=== PATIENT | female | born 1990 | race Caucasian/White ===

== ENCOUNTER 2020-05-24 23:14 | Inpatient (IN) | payer OTHER ==
[~2020-05-24] VITALS: Ht 162.6 cm; Wt 55.0 kg
[2020-05-24 23:29] LABS: BASOPHILS % (AUTO) 0.8 % (0.0-2.0); EOSINOPHILS % (AUTO) 0.5 % (1.0-6.0); HEMATOCRIT 37.6 % (36-46); HEMOGLOBIN 12.8 g/dL (12.0-16.0); LYMPHOCYTES # (AUTO) 2.9 K/uL (1.0-4.8); LYMPHOCYTES % (AUTO) 51.6 % (22.0-44.0); MEAN CORPUSCULAR HEMOGLOBIN 28.1 pg (26.0-34.0); MEAN CORPUSCULAR HGB CONC 33.9 G/dL (31.0-37.0); MEAN CORPUSCULAR VOLUME 83 fL (80-100); MONOCYTES # (AUTO) 0.4 K/uL (0.1-1.0); MONOCYTES % (AUTO) 6.2 % (2.0-9.0); NEUTROPHILS # (AUTO) 2.3 K/uL (1.8-7.7); NEUTROPHILS % (AUTO) 40.9 % (40.0-70.0); PLATELET COUNT (AUTO) 283 K/uL (150-450); RED BLOOD CELL COUNT(AUTO) 4.53 MIL/uL (4.00-5.20)
[2020-05-24] MEDS ORDERED: INSU100I24 SQ (23:38)
[2020-05-24] MEDS ORDERED: ESCI-8 PO (23:38)
[2020-05-24] MEDS ORDERED: INSU100I3 SQ (23:38)
[2020-05-24] MEDS ORDERED: SPIR50 PO (23:38)
[2020-05-24 23:55] LABS: GLUCOSE,POINT OF CARE 206 MG/DL (70-110)
[2020-05-24 23:57] LABS: ALANINE AMINOTRANSFERASE 17 U/L (12-78); ALBUMIN 3.8 g/dL (3.4-5.0); ASPARTATE AMINOTRANSFERASE 14 U/L (15-37); CHLORIDE 104 mmol/L (98-107); POTASSIUM 3.3 mmol/L (3.5-5.1); SODIUM SERUM 143 mmol/L (136-145)
[2020-05-25 00:14] LABS: ALKALINE PHOSPHATASE 56 U/L (46-116); ANION GAP 15 mmol/L (8-16); BILIRUBIN,TOTAL 0.4 mg/dL (0.1-1.0); CALCIUM, TOTAL 8.8 mg/dL (8.8-10.5); CARBON DIOXIDE 24 mmol/L (22-29); CREATININE 0.57 mg/dL (0.60-1.30); GLOMERULAR FILTR. RATE CALC > 60 mL/min (>60); GLUCOSE,RANDOM 239 mg/dL (70-110); HCG,QUANTITATIVE < 1 mIU/mL (0-6); TOTAL PROTEIN, SERUM 6.6 g/dL (6.4-8.2); UREA NITROGEN, BLOOD 5 mg/dL (7-18)
[2020-05-25] MEDS ORDERED: LORazepam 2 MG TABLET PO PRN (00:45)
[2020-05-25] MEDS ORDERED: ZOLPIDEM TARTRATE 10 MG TABLET PO PRN (00:45)
[2020-05-25] MEDS ORDERED: QUEtiapine FUMARATE 100 MG TABLET PO PRN (00:45)
[2020-05-25 01:07] LABS: COVID AG,FIA SOURCE NASOPHARYNGEAL
[2020-05-25] MEDS ORDERED: POTASSIUM CHLORIDE 10% 40 MEQ/30 ML LIQUID UDCUP PO ONE (01:15)
[2020-05-25] MEDS ORDERED: INSULIN REGULAR, HUMAN 100 UNITS/ML SQ ONE (01:15)
[2020-05-25] MEDS ORDERED: BACITRACIN 0.9 GM PACKET OINTMENT TP ONE (01:15)
[2020-05-25] MEDS ORDERED: PERTUSS(ACELL),DIPH,TET VAC/PF 0.5 ML VIAL IM ONE (01:15)
[2020-05-25 03:15] VITALS: BP 113/80
[2020-05-25] MEDS ORDERED: INFLUENZA VIRUS VACCINE QVS 2020-21 (6MO+)/PF 60 MCG/0.5 ML SYRINGE IM ONE (05:00)
[2020-05-25] MEDS ORDERED: PNEUMOCOCCAL VACCINE POLYVALENT 0.5 ML VIAL [PPSV23] IM ONE (05:00)
[2020-05-25] MEDS ORDERED: DEXTROSE 50%-WATER 25 GM/50 ML SYRINGE IVP PRN (06:45)
[2020-05-25] MEDS ORDERED: MAGNESIUM HYDROXIDE SUSPENSION 30 ML UDCUP PO PRN (09:00)
[2020-05-25] MEDS ORDERED: CloNIDine HCL 0.1 MG TABLET PO PRN (09:00)
[2020-05-25] MEDS ORDERED: LOPERAMIDE HCL 2 MG CAPSULE PO PRN (09:00)
[2020-05-25] MEDS ORDERED: MAG HYDROX/AL HYDROX/SIMETH ES 30 ML SUSPENSION UDCUP PO PRN (09:00)
[2020-05-25] MEDS ORDERED: NICOTINE 14 MG/24 HOUR PATCH TD PRN (09:00)
[2020-05-25] MEDS ORDERED: DOCUSATE SODIUM 100 MG CAPSULE PO PRN (09:00)
[2020-05-25] MEDS ORDERED: GuaiFENesin/D-METHORPHAN [SUGAR-FREE] 200-20MG/10 ML SYRUP UDCUP PO PRN (09:00)
[2020-05-25] MEDS ORDERED: ALBUTEROL SULFATE HFA 90 MCG/PUFF 8 GM INHALER IH PRN (09:00)
[2020-05-25] MEDS ORDERED: PETROLATUM,WHITE 28 GM JELLY TP PRN (09:00)
[2020-05-25] MEDS ORDERED: ONDANSETRON HCL 4 MG TABLET PO PRN (09:00)
[2020-05-25] MEDS ORDERED: ACETAMINOPHEN 325 MG TABLET PO PRN (09:00)
[2020-05-25] MEDS ORDERED: IBUPROFEN 400 MG TABLET PO PRN (09:00)
[2020-05-25 09:32] VITALS: BP 117/77
[2020-05-25] MEDS ORDERED: POTASSIUM CHLORIDE 20 MEQ ER TABLET PO ONE (10:00)
[2020-05-25] MEDS: SPIRONOLACTONE 50 MG TABLET PO SCH (10:43)
[2020-05-25] MEDS: INSULIN LISPRO 100 UNITS/ML SQ PRN ×3 (11:59→21:18)
[2020-05-25 12:25] LABS: GLUCOMETER DEV NAME(LOC) 3E.I 2; GLUCOSE,POINT OF CARE 167 MG/DL (70-110)
[2020-05-25] MEDS: ESCITALOPRAM OXALATE 10 MG TABLET PO SCH (15:08)
[2020-05-25 16:49] VITALS: BP 110/68
[2020-05-25] MEDS: BACITRACIN 28 GM OINTMENT TP SCH (17:05)
[2020-05-25] MEDS: INSULIN GLARGINE,HUM.REC.ANLOG 100 UNITS/ML SQ SCH (17:23)
[2020-05-25 20:43] LABS: GLUCOMETER DEV NAME(LOC) 3E.I 2; GLUCOSE,POINT OF CARE 209 MG/DL (70-110)
[2020-05-26 05:22] LABS: GLUCOMETER DEV NAME(LOC) 3E.I 2; GLUCOSE,POINT OF CARE 193 MG/DL (70-110)
[2020-05-26 05:49] LABS: GLUCOMETER DEV NAME(LOC) 3E.I 2; GLUCOSE,POINT OF CARE 158 MG/DL (70-110)
[2020-05-26] MEDS: INSULIN LISPRO 100 UNITS/ML SQ PRN ×3 (06:57→20:46)
[2020-05-26 08:20] LABS: CHOL/HDL RATIO 2.4 (3.9-5.7)
[2020-05-26] MEDS: FOLIC ACID 1 MG TABLET PO SCH (08:30)
[2020-05-26] MEDS: MULTIVITAMINS WITH MINERALS, THERAPEUTIC TABLET PO SCH (08:30)
[2020-05-26] MEDS: ESCITALOPRAM OXALATE 10 MG TABLET PO SCH (08:30)
[2020-05-26] MEDS: THIAMINE 100 MG TABLET PO SCH (08:34)
[2020-05-26] MEDS: SPIRONOLACTONE 50 MG TABLET PO SCH (08:35)
[2020-05-26] MEDS: INSULIN GLARGINE,HUM.REC.ANLOG 100 UNITS/ML SQ SCH ×2 (08:45→17:12)
[2020-05-26 08:52] LABS: GLUCOMETER DEV NAME(LOC) 3E.I 2; GLUCOSE,POINT OF CARE 234 MG/DL (70-110)
[2020-05-26 09:27] VITALS: BP 101/68
[2020-05-26] MEDS: BACITRACIN 28 GM OINTMENT TP SCH ×2 (11:06→18:11)
[2020-05-26 11:37] LABS: GLUCOMETER DEV NAME(LOC) 3E.I 2; GLUCOSE,POINT OF CARE 282 MG/DL (70-110)
[2020-05-26 16:00] VITALS: BP 110/68
[2020-05-26 16:47] LABS: GLUCOMETER DEV NAME(LOC) 3E.I 2; GLUCOSE,POINT OF CARE 298 MG/DL (70-110)
[2020-05-26 20:47] LABS: GLUCOMETER DEV NAME(LOC) 3E.I 2; GLUCOSE,POINT OF CARE 337 MG/DL (70-110)
[2020-05-27 06:27] LABS: GLUCOMETER DEV NAME(LOC) 3E.I 2; GLUCOSE,POINT OF CARE 106 MG/DL (70-110)
[2020-05-27] MEDS: ESCITALOPRAM OXALATE 10 MG TABLET PO SCH (08:35)
[2020-05-27] MEDS: MULTIVITAMINS WITH MINERALS, THERAPEUTIC TABLET PO SCH (08:35)
[2020-05-27] MEDS: SPIRONOLACTONE 50 MG TABLET PO SCH (08:35)
[2020-05-27] MEDS: THIAMINE 100 MG TABLET PO SCH (08:36)
[2020-05-27] MEDS: FOLIC ACID 1 MG TABLET PO SCH (08:36)
[2020-05-27] MEDS: INSULIN GLARGINE,HUM.REC.ANLOG 100 UNITS/ML SQ SCH (08:39)
[2020-05-27 08:44] LABS: GLUCOMETER DEV NAME(LOC) 3E.I 2; GLUCOSE,POINT OF CARE 179 MG/DL (70-110)
[2020-05-27 09:42] VITALS: BP 113/70
[2020-05-27] MEDS ORDERED: FOLI0.4T92 PO (10:32)
[2020-05-27] MEDS ORDERED: THIA100T80 PO (10:34)
[2020-05-27] MEDS ORDERED: MULT-1119 PO (10:34)
[2020-05-27] MEDS ORDERED: INSLAN SQ (10:34)
[2020-05-27] MEDS: INSULIN LISPRO 100 UNITS/ML SQ PRN (11:00)
[2020-05-27 11:05] LABS: GLUCOMETER DEV NAME(LOC) 3E.I 2; GLUCOSE,POINT OF CARE 279 MG/DL (70-110)
[2020-05-27] MEDS: BACITRACIN 28 GM OINTMENT TP SCH (11:19)
== END 2020-05-27 11:45 | disposition home or self-care (01) | DRG 885 ==
LOC: EMS 23:16 → 3EI 05-25 00:38
DX: F32.2 Major depressive disorder, single episode, severe without psychotic features (principal); E10.65 Type 1 diabetes mellitus with hyperglycemia; E87.6 Hypokalemia; F10.20 Alcohol dependence, uncomplicated; F17.200 Nicotine dependence, unspecified, uncomplicated; S51.812A Laceration without foreign body of left forearm, initial encounter; X78.8XXA Intentional self-harm by other sharp object, initial encounter; Z20.828 Contact with and (suspected) exposure to other viral communicable diseases; Z79.899 Other long term (current) drug therapy; Y93.89 Activity, other specified; Y92.89 Other specified places as the place of occurrence of the external cause; Y99.8 Other external cause status
CPT/HCPCS: 84132; 87426; 90715; G0480; J1815

== ENCOUNTER 2020-07-20 06:21 | Inpatient (IN) | payer OTHER ==
[~2020-07-20] VITALS: Ht 162.6 cm; Wt 58.8 kg
[~2020-07-20 06:21] MED LIST: ESCI-8 PO; FOLI0.4T6 PO; INSLAN SQ; MULT-1119 PO; SPIR50 PO; THIA100T80 PO
[2020-07-20] MEDS ORDERED: RINGERS SOLUTION,LACTATED 1,000 ML IV ONE (06:45)
[2020-07-20] MEDS ORDERED: RINGERS SOLUTION,LACTATED 1,650 ML IV ONE (06:45)
[2020-07-20 07:23] LABS: ABG BASE EXCESS -33.9 mmol/L (-2.0-3.0); ABG CARBOXYHEMOGLOBIN 0.2 % (0.0-3.0); ABG METHEMOGLOBIN 0.3 % (0.0-1.5); ABG OXYGEN CONTENT 18.6 mL/dL (15.0-23.0); ABG OXYGEN SATURATION 98.3 % (95.0-98.0); ABG OXYHEMOGLOBIN 97.8 % (94.0-100.0); ABG PH 6.754 (7.350-7.450); ABG TOTAL HEMOGLOBIN 13.3 G/dL (12.0-18.0); PO2, ARTERIAL BG 154.7 mmHg (80.0-100.0); SOURCE, BLOOD GAS ARTERIAL; TEMPERATURE, FAHRENHEIT, BG 98.6 FAHREN (96.0-98.6)
[2020-07-20 07:24] LABS: ABG HCO3 3.4 mmol/L (22.0-26.0); ABG PCO2 10 mmHg (35-45)
[2020-07-20 07:25] LABS: O2 DEVICE,BLOOD GAS ROOM AIR (ROOM AIR); SITE, BLOOD GAS RT RADIAL
[2020-07-20 07:37] LABS: HEMOGLOBIN 12.4 g/dL (12.0-16.0); MEAN CORPUSCULAR HEMOGLOBIN 27.4 pg (26.0-34.0); MEAN CORPUSCULAR HGB CONC 28.2 G/dL (31.0-37.0)
[2020-07-20 07:40] LABS: HEMATOCRIT 43.8 % (36-46); MEAN CORPUSCULAR VOLUME 97 fL (80-100); PLATELET COUNT (AUTO) 409 K/uL (150-450); RED BLOOD CELL COUNT(AUTO) 4.51 MIL/uL (4.00-5.20); RED CELL DISTRIBUTION WIDTH 15.2 % (11.5-14.5)
[2020-07-20] MEDS ORDERED: SODIUM BICARBONATE IV ONE (07:45)
[2020-07-20] MEDS ORDERED: WATER FOR INJECTION STERILE IV ONE (07:45)
[2020-07-20 07:52] LABS: SALICYLATE 6.2 mg/dL (2.8-20.0)
[2020-07-20 08:02] LABS: COVID AG,FIA SOURCE NASOPHARYNGEAL
[2020-07-20 08:06] LABS: ALANINE AMINOTRANSFERASE 16 U/L (12-78); ALBUMIN 3.4 g/dL (3.4-5.0); ALKALINE PHOSPHATASE 110 U/L (46-116); ASPARTATE AMINOTRANSFERASE 24 U/L (15-37); BILIRUBIN,TOTAL 0.5 mg/dL (0.1-1.0); CALCIUM, TOTAL 7.9 mg/dL (8.8-10.5); CHLORIDE 89 mmol/L (98-107); CREATININE 1.19 mg/dL (0.60-1.30); FREE T4 (FREE THYROXINE) 0.85 ng/dL (0.76-1.46); GLOMERULAR FILTR. RATE CALC 54 mL/min (>60); HCG,QUANTITATIVE 1 mIU/mL (0-6); POTASSIUM 4.5 mmol/L (3.5-5.1); SODIUM SERUM 126 mmol/L (136-145); THYROID STIMULATING HORMONE 0.88 uIU/mL (0.36-3.74); TOTAL PROTEIN, SERUM 7.3 g/dL (6.4-8.2); UREA NITROGEN, BLOOD 27 mg/dL (7-18)
[2020-07-20 08:18] LABS: AMPHET/METH SCREEN,URINE NEGATIVE (NEGATIVE); BARBITURATE SCREEN, URINE NEGATIVE (NEGATIVE); BENZODIAZEPINES SCREEN,URINE NEGATIVE (NEGATIVE); CANNABINOID SCREEN,URINE NEGATIVE (NEGATIVE); COCAINE SCREEN,URINE NEGATIVE (NEGATIVE); METHADONE SCREEN, URINE NEGATIVE (NEGATIVE); OPIATE SCREEN,URINE NEGATIVE (NEGATIVE)
[2020-07-20 08:20] LABS: ANION GAP 32 mmol/L (8-16); CARBON DIOXIDE < 5 mmol/L (22-29)
[2020-07-20 08:21] LABS: GLUCOSE,RANDOM 605 mg/dL (70-110); LACTIC ACID 2.6 mmol/L (0.4-2.0)
[2020-07-20 08:22] LABS: PHENCYCLIDINE SCREEN,URINE NEGATIVE (NEGATIVE)
[2020-07-20] MEDS ORDERED: DEXTROSE 50%-WATER 25 GM/50 ML SYRINGE IVP PRN (08:30)
[2020-07-20] MEDS ORDERED: SODIUM CHLORIDE 0.9% 1,000 ML IV SCH (08:30)
[2020-07-20] MEDS ORDERED: VANCOMYCIN HCL 1 GM/D5% WATER 200 ML IV ONE (08:30)
[2020-07-20] MEDS ORDERED: POTASSIUM CHL 20 MEQ/0.45% NS 1,000 ML IV PRN (08:30)
[2020-07-20] MEDS: PIPERACILLIN/TAZO 3.375 GM/D5W 50 ML IV SCH ×3 (08:30→19:33)
[2020-07-20] MEDS ORDERED: POTASSIUM CHLORIDE 40 MEQ in SODIUM CHLORIDE 0.45% 1,000 ML IV PRN (08:30)
[2020-07-20] MEDS ORDERED: SODIUM CHLORIDE 0.45% 1,000 ML IV PRN (08:30)
[2020-07-20 08:32] LABS: BAND NEUTROPHILS % (MANUAL) 4 % (0-5); EOSINOPHILS % (MANUAL) 1 % (1-6); LYMPHOCYTES % (MANUAL) 9 % (22-44); METAMYELOCYTES % 1 % (0-0); MONOCYTES % (MANUAL) 6 % (2-9); SEGMENTED NEUTROPHILS % 79 % (40-70)
[2020-07-20 08:34] LABS: INFLUENZA TYPE A NEGATIVE FOR TYPE A (NEGATIVE); INFLUENZA TYPE B NEGATIVE FOR TYPE B (NEGATIVE)
[2020-07-20 08:34] LABS: APPEARANCE,URINE CLOUDY (CLEAR); BILIRUBIN,URINE NEGATIVE (NEGATIVE); GLUCOSE, URINE (UA) >=1000 mg/dL (NEGATIVE); KETONES,URINE >=80 mg/dL (NEGATIVE); LEUKOCYTE ESTERASE ,URINE NEGATIVE (NEGATIVE); NITRATE,URINE NEGATIVE (NEGATIVE); OCCULT BLOOD,URINE LARGE (NEGATIVE); PROTEIN,URINE SEE CONFIRM (NEGATIVE); UROBILINOGEN,URINE 0.2 mg/dL (<=1.0)
[2020-07-20] MEDS ORDERED: POTASSIUM CHL 20 MEQ/0.9% NS 1,000 ML IV ONE (08:45)
[2020-07-20 08:47] LABS: BACTERIA,URINE None Seen /HPF (None Seen); SQUAMOUS EPITHELIAL CELL,UR Few /LPF (None Seen); SULFOSALICYLIC ACID,URINE 2+ (Negative); WBC,URINE None Seen /HPF (0-5)
[2020-07-20] MEDS: INSULIN REGULAR, HUMAN 100 UNITS in SODIUM CHLORIDE 0.9% 99 ML IV PRN ×4 (08:50→18:17)
[2020-07-20 09:18] LABS: PHOSPHORUS 5.8 mg/dL (2.5-4.9)
[2020-07-20 09:20] LABS: ACETAMINOPHEN < 2 mcg/mL (10-30)
[2020-07-20] MEDS ORDERED: 0.9% SODIUM CHLORIDE 10 ML SYRINGE IVP PRN (09:30)
[2020-07-20] MEDS ORDERED: ACETAMINOPHEN 325 MG TABLET PO PRN (09:30)
[2020-07-20] MEDS ORDERED: ONDANSETRON HCL 4 MG/2 ML VIAL IVP PRN ×2 (09:30→10:30)
[2020-07-20 09:44] LABS: GLUCOSE,POINT OF CARE 492 MG/DL (70-110)
[2020-07-20] MEDS ORDERED: BISACODYL 10 MG RECTAL RECTAL SUPPOSITORY PR PRN (10:30)
[2020-07-20] MEDS ORDERED: IPRATROPIUM BROMIDE 0.5 MG/2.5 ML NEB SOLUTION NEB PRN (10:30)
[2020-07-20] MEDS ORDERED: DOCUSATE SODIUM 100 MG CAPSULE PO PRN (10:30)
[2020-07-20] MEDS ORDERED: ALBUTEROL SULFATE 2.5 MG/0.5 ML NEB SOLUTION NEB PRN (10:30)
[2020-07-20] MEDS ORDERED: LORazepam 2 MG/ML VIAL IVP PRN (10:45)
[2020-07-20] MEDS: PANTOPRAZOLE SODIUM 40 MG/VIAL IVP SCH (11:20)
[2020-07-20] MEDS: INSULIN REGULAR, HUMAN 100 UNITS/ML IVP PRN ×3 (11:22→14:07)
[2020-07-20] MEDS: THIAMINE 100 MG TABLET PO SCH (11:24)
[2020-07-20 11:41] LABS: GLUCOSE,POINT OF CARE 403 MG/DL (70-110)
[2020-07-20 11:41] LABS: GLUCOSE,POINT OF CARE 475 MG/DL (70-110)
[2020-07-20 11:53] LABS: HEMATOCRIT 43.1 % (36-46); HEMOGLOBIN 12.4 g/dL (12.0-16.0); MEAN CORPUSCULAR HGB CONC 28.8 G/dL (31.0-37.0); MEAN CORPUSCULAR VOLUME 94 fL (80-100); PLATELET COUNT (AUTO) 400 K/uL (150-450); RED BLOOD CELL COUNT(AUTO) 4.59 MIL/uL (4.00-5.20)
[2020-07-20 12:05] LABS: CALCIUM, TOTAL 7.2 mg/dL (8.8-10.5); CHLORIDE 98 mmol/L (98-107); CREATININE 1.23 mg/dL (0.60-1.30); GLOMERULAR FILTR. RATE CALC 52 mL/min (>60); POTASSIUM 3.7 mmol/L (3.5-5.1); SODIUM SERUM 133 mmol/L (136-145); UREA NITROGEN, BLOOD 29 mg/dL (7-18)
[2020-07-20 12:06] LABS: BAND NEUTROPHILS % (MANUAL) 5 % (0-5); LYMPHOCYTES % (MANUAL) 11 % (22-44); METAMYELOCYTES % 1 % (0-0); MONOCYTES % (MANUAL) 5 % (2-9); SEGMENTED NEUTROPHILS % 78 % (40-70)
[2020-07-20 12:09] LABS: ANION GAP 30 mmol/L (8-16); CARBON DIOXIDE < 5 mmol/L (22-29)
[2020-07-20 12:10] LABS: GLUCOSE,RANDOM 460 mg/dL (70-110)
[2020-07-20 13:35] LABS: GLUCOSE,POINT OF CARE 330 MG/DL (70-110)
[2020-07-20 14:27] LABS: GLUCOSE,POINT OF CARE 252 MG/DL (70-110)
[2020-07-20 14:30] LABS: CALCIUM, TOTAL 7.7 mg/dL (8.8-10.5); CHLORIDE 103 mmol/L (98-107); CREATININE 1.17 mg/dL (0.60-1.30); GLOMERULAR FILTR. RATE CALC 55 mL/min (>60); GLUCOSE,RANDOM 288 mg/dL (70-110); POTASSIUM 3.3 mmol/L (3.5-5.1); SODIUM SERUM 136 mmol/L (136-145); UREA NITROGEN, BLOOD 31 mg/dL (7-18)
[2020-07-20 14:32] LABS: CARBON DIOXIDE < 5 mmol/L (22-29)
[2020-07-20 14:33] LABS: ANION GAP 28 mmol/L (8-16)
[2020-07-20 15:12] LABS: ABG A-A DIFF O2 7.7 mmHg (10-20.0); ABG BASE EXCESS -27.5 mmol/L (-2.0-3.0); ABG CARBOXYHEMOGLOBIN 0.4 % (0.0-3.0); ABG METHEMOGLOBIN 0.2 % (0.0-1.5); ABG OXYGEN CONTENT 16.6 mL/dL (15.0-23.0); ABG OXYGEN SATURATION 98.4 % (95.0-98.0); ABG OXYHEMOGLOBIN 97.8 % (94.0-100.0); ABG TOTAL HEMOGLOBIN 11.9 G/dL (12.0-18.0); PO2, ARTERIAL BG 128.9 mmHg (80.0-100.0); SOURCE, BLOOD GAS ARTERIAL; TEMPERATURE, FAHRENHEIT, BG 98.1 FAHREN (96.0-98.6)
[2020-07-20 15:15] LABS: ABG HCO3 6.7 mmol/L (22.0-26.0); ABG PCO2 11 mmHg (35-45); ABG PH 7.052 (7.350-7.450); SITE, BLOOD GAS RT BRACHIAL
[2020-07-20 15:24] LABS: GLUCOSE,POINT OF CARE 207 MG/DL (70-110)
[2020-07-20] MEDS: DEXTROSE 5%-0.45% SODIUM CHL 1,000 ML IV PRN ×2 (15:25→21:18)
[2020-07-20 16:18] LABS: GLUCOSE,POINT OF CARE 162 MG/DL (70-110)
[2020-07-20] MEDS: HEPARIN SODIUM,PORCINE 5,000 UNITS/ML VIAL SQ SCH ×2 (16:41→23:15)
[2020-07-20] MEDS ORDERED: SODIUM CHLORIDE 0.9% 1,000 ML IV ONE ×2 (17:15→20:30)
[2020-07-20] MEDS ORDERED: SODIUM CHLORIDE 0.9% 1,000 ML IV PRN (17:15)
[2020-07-20 17:20] LABS: GLUCOSE,POINT OF CARE 158 MG/DL (70-110)
[2020-07-20] MEDS ORDERED: POTASSIUM CHLORIDE 20 MEQ ER TABLET PO PRN (17:30)
[2020-07-20 18:03] LABS: CALCIUM, TOTAL 7.8 mg/dL (8.8-10.5); CREATININE 1.16 mg/dL (0.60-1.30); POTASSIUM 3.5 mmol/L (3.5-5.1)
[2020-07-20 18:34] LABS: GLUCOSE,POINT OF CARE 151 MG/DL (70-110)
[2020-07-20] MEDS: POTASSIUM CHL 10 MEQ/WATER 50 ML IV PRN ×3 (18:42→20:28)
[2020-07-20 19:34] LABS: GLUCOSE,POINT OF CARE 186 MG/DL (70-110)
[2020-07-20] MEDS: ACETAMINOPHEN 325 MG TABLET PO PRN (19:49)
[2020-07-20 19:57] LABS: CALCIUM, TOTAL 7.4 mg/dL (8.8-10.5); CREATININE 1.26 mg/dL (0.60-1.30); MAGNESIUM 1.5 mg/dL (1.80-2.40); POTASSIUM 4.2 mmol/L (3.5-5.1)
[2020-07-20] MEDS ORDERED: VANCOMYCIN HCL 750 MG in DEXTROSE 5%-WATER 250 ML IV ONE (20:00)
[2020-07-20 20:23] LABS: GLUCOSE,POINT OF CARE 211 MG/DL (70-110)
[2020-07-20] MEDS ORDERED: MAGNESIUM SULFATE 4 GM/WATER 100 ML IV ONE (21:15)
[2020-07-20 21:26] LABS: GLUCOSE,POINT OF CARE 279 MG/DL (70-110)
[2020-07-20 22:39] LABS: GLUCOSE,POINT OF CARE 279 MG/DL (70-110)
[2020-07-20 23:27] LABS: GLUCOSE,POINT OF CARE 263 MG/DL (70-110)
[2020-07-20 23:36] LABS: CALCIUM, TOTAL 7.3 mg/dL (8.8-10.5); CREATININE 1.39 mg/dL (0.60-1.30); MAGNESIUM 1.6 mg/dL (1.80-2.40); POTASSIUM 3.2 mmol/L (3.5-5.1)
[2020-07-20 23:53] LABS: PHOSPHORUS 0.4 mg/dL (2.5-4.9)
[2020-07-21] MEDS: POTASSIUM CHL 10 MEQ/WATER 50 ML IV SCH ×3 (00:29→02:28)
[2020-07-21 01:34] LABS: GLUCOSE,POINT OF CARE 208 MG/DL (70-110)
[2020-07-21 02:23] LABS: GLUCOSE,POINT OF CARE 242 MG/DL (70-110)
[2020-07-21] MEDS: DEXTROSE 5%-0.45% SODIUM CHL 1,000 ML IV PRN ×3 (02:28→18:34)
[2020-07-21 03:33] LABS: GLUCOSE,POINT OF CARE 252 MG/DL (70-110)
[2020-07-21 04:19] LABS: GLUCOSE,POINT OF CARE 219 MG/DL (70-110)
[2020-07-21 04:35] LABS: CALCIUM, TOTAL 6.6 mg/dL (8.8-10.5); CREATININE 1.27 mg/dL (0.60-1.30); MAGNESIUM 2.1 mg/dL (1.80-2.40)
[2020-07-21 04:38] LABS: POTASSIUM 2.5 mmol/L (3.5-5.1)
[2020-07-21] MEDS: POTASSIUM CHL 10 MEQ/WATER 50 ML IV PRN ×8 (04:51→15:58)
[2020-07-21 06:43] LABS: GLUCOSE,POINT OF CARE 188 MG/DL (70-110)
[2020-07-21 07:35] LABS: GLUCOSE,POINT OF CARE 150 MG/DL (70-110)
[2020-07-21 07:38] LABS: HEMATOCRIT 30.5 % (36-46); HEMOGLOBIN 10.1 g/dL (12.0-16.0); MEAN CORPUSCULAR HEMOGLOBIN 27.4 pg (26.0-34.0); MEAN CORPUSCULAR HGB CONC 33.2 G/dL (31.0-37.0); MEAN CORPUSCULAR VOLUME 82 fL (80-100); PLATELET COUNT (AUTO) 220 K/uL (150-450); RED BLOOD CELL COUNT(AUTO) 3.71 MIL/uL (4.00-5.20)
[2020-07-21 08:01] LABS: ALBUMIN 2.6 g/dL (3.4-5.0); CREATININE 1.24 mg/dL (0.60-1.30); TOTAL PROTEIN, SERUM 5.5 g/dL (6.4-8.2)
[2020-07-21 08:04] LABS: PHOSPHORUS 0.5 mg/dL (2.5-4.9); POTASSIUM 2.6 mmol/L (3.5-5.1)
[2020-07-21] MEDS: HEPARIN SODIUM,PORCINE 5,000 UNITS/ML VIAL SQ SCH ×2 (08:18→16:42)
[2020-07-21 08:24] LABS: BILIRUBIN,TOTAL 0.2 mg/dL (0.1-1.0); CHOL/HDL RATIO 2.4 (3.9-5.7); FREE T4 (FREE THYROXINE) 1.24 ng/dL (0.76-1.46); THYROID STIMULATING HORMONE 0.98 uIU/mL (0.36-3.74)
[2020-07-21] MEDS: INSULIN REGULAR, HUMAN 100 UNITS in SODIUM CHLORIDE 0.9% 99 ML IV PRN ×2 (08:27)
[2020-07-21 08:32] LABS: BAND NEUTROPHILS % (MANUAL) 9 % (0-5); LYMPHOCYTES % (MANUAL) 11 % (22-44); SEGMENTED NEUTROPHILS % 80 % (40-70)
[2020-07-21] MEDS ORDERED: SODIUM PHOS,M-BASIC-D-BASIC 30 MMOL in DEXTROSE 5%-WATER 250 ML IV ONE ×6 (08:45→20:00)
[2020-07-21] MEDS: FOLIC ACID 0.4 MG TABLET PO SCH (09:33)
[2020-07-21] MEDS: MULTIVITAMINS WITH MINERALS, THERAPEUTIC TABLET PO SCH (09:33)
[2020-07-21] MEDS: PANTOPRAZOLE SODIUM 40 MG/VIAL IVP SCH (09:33)
[2020-07-21] MEDS: THIAMINE 100 MG TABLET PO SCH (09:33)
[2020-07-21] MEDS: ESCITALOPRAM OXALATE 10 MG TABLET PO SCH (09:33)
[2020-07-21 09:51] LABS: GLUCOSE,POINT OF CARE 145 MG/DL (70-110)
[2020-07-21 09:51] LABS: GLUCOSE,POINT OF CARE 137 MG/DL (70-110)
[2020-07-21] MEDS ORDERED: MAGNESIUM SULFATE 4 GM/WATER 100 ML IV PRN (10:00)
[2020-07-21] MEDS ORDERED: MAGNESIUM OXIDE 400 MG TABLET PO PRN (10:00)
[2020-07-21] MEDS ORDERED: MAGNESIUM SULFATE 2 GM/WATER 50 ML IV PRN (10:00)
[2020-07-21 12:17] LABS: ANION GAP 14 mmol/L (8-16); CALCIUM, TOTAL 6.8 mg/dL (8.8-10.5); CARBON DIOXIDE 13 mmol/L (22-29); CHLORIDE 109 mmol/L (98-107); CREATININE 1.08 mg/dL (0.60-1.30); GLOMERULAR FILTR. RATE CALC > 60 mL/min (>60); GLUCOSE,RANDOM 188 mg/dL (70-110); SODIUM SERUM 136 mmol/L (136-145); UREA NITROGEN, BLOOD 23 mg/dL (7-18)
[2020-07-21 12:20] LABS: POTASSIUM 2.8 mmol/L (3.5-5.1)
[2020-07-21 12:42] LABS: GLUCOSE,POINT OF CARE 169 MG/DL (70-110)
[2020-07-21 12:42] LABS: GLUCOSE,POINT OF CARE 152 MG/DL (70-110)
[2020-07-21 12:58] LABS: PHOSPHORUS 1.6 mg/dL (2.5-4.9)
[2020-07-21 13:45] LABS: GLUCOSE,POINT OF CARE 136 MG/DL (70-110)
[2020-07-21 15:33] LABS: GLUCOSE,POINT OF CARE 134 MG/DL (70-110)
[2020-07-21 15:33] LABS: GLUCOSE,POINT OF CARE 124 MG/DL (70-110)
[2020-07-21 16:07] LABS: ABG A-A DIFF O2 8.3 mmHg (10-20.0); ABG BASE EXCESS -14.9 mmol/L (-2.0-3.0); ABG CARBOXYHEMOGLOBIN 0.3 % (0.0-3.0); ABG HCO3 14.3 mmol/L (22.0-26.0); ABG METHEMOGLOBIN 0.1 % (0.0-1.5); ABG OXYGEN SATURATION 97.8 % (95.0-98.0); ABG OXYHEMOGLOBIN 97.4 % (94.0-100.0); ABG PCO2 19 mmHg (35-45); ABG PH 7.356 (7.350-7.450); ABG TOTAL HEMOGLOBIN 10.1 G/dL (12.0-18.0); SITE, BLOOD GAS LFT RADIAL; SOURCE, BLOOD GAS ARTERIAL
[2020-07-21 16:08] LABS: O2 DEVICE,BLOOD GAS ROOM AIR (ROOM AIR)
[2020-07-21 16:42] LABS: ANION GAP 13 mmol/L (8-16); CARBON DIOXIDE 13 mmol/L (22-29); CHLORIDE 111 mmol/L (98-107); CREATININE 0.96 mg/dL (0.60-1.30); GLOMERULAR FILTR. RATE CALC > 60 mL/min (>60); GLUCOSE,RANDOM 130 mg/dL (70-110); SODIUM SERUM 137 mmol/L (136-145); UREA NITROGEN, BLOOD 22 mg/dL (7-18)
[2020-07-21] MEDS: ACETAMINOPHEN 325 MG TABLET PO PRN (16:42)
[2020-07-21 16:48] LABS: GLUCOSE,POINT OF CARE 121 MG/DL (70-110)
[2020-07-21 16:51] LABS: POTASSIUM 2.8 mmol/L (3.5-5.1)
[2020-07-21 18:03] LABS: GLUCOSE,POINT OF CARE 143 MG/DL (70-110)
[2020-07-21] MEDS ORDERED: IPRATROPIUM BROMIDE 0.5 MG/2.5 ML NEB SOLUTION NEB PRN (18:45)
[2020-07-21] MEDS ORDERED: ALBUTEROL SULFATE 2.5 MG/0.5 ML NEB SOLUTION NEB PRN (18:45)
[2020-07-21 19:39] LABS: GLUCOSE,POINT OF CARE 106 MG/DL (70-110)
[2020-07-21 19:56] VITALS: BP 115/61
[2020-07-21 20:24] LABS: GLUCOSE,POINT OF CARE 133 MG/DL (70-110)
[2020-07-21 20:56] VITALS: BP 121/69
[2020-07-21 21:56] VITALS: BP 119/64
[2020-07-21 22:14] LABS: GLUCOSE,POINT OF CARE 133 MG/DL (70-110)
[2020-07-21 22:19] LABS: GLUCOSE,POINT OF CARE 142 MG/DL (70-110)
[2020-07-21 22:56] VITALS: BP 120/68
[2020-07-21 23:31] LABS: GLUCOSE,POINT OF CARE 180 MG/DL (70-110)
[2020-07-21 23:56] VITALS: BP 126/67
[2020-07-22] VITALS (23 sets, daily range): BP systolic 100–134; BP diastolic 46–95
[2020-07-22] MEDS ORDERED: DEXTROSE 50%-WATER 25 GM/50 ML SYRINGE IVP PRN ×2
[2020-07-22] MEDS: HEPARIN SODIUM,PORCINE 5,000 UNITS/ML VIAL SQ SCH ×4 (00:13→23:44)
[2020-07-22] MEDS: DEXTROSE 5%-WATER 1,000 ML IV SCH ×2 (00:28→12:30)
[2020-07-22 00:32] LABS: GLUCOSE,POINT OF CARE 173 MG/DL (70-110)
[2020-07-22 00:47] LABS: ANION GAP 11 mmol/L (8-16); CALCIUM, TOTAL 6.7 mg/dL (8.8-10.5); CARBON DIOXIDE 14 mmol/L (22-29); CHLORIDE 111 mmol/L (98-107); CREATININE 0.92 mg/dL (0.60-1.30); GLOMERULAR FILTR. RATE CALC > 60 mL/min (>60); GLUCOSE,RANDOM 195 mg/dL (70-110); PHOSPHORUS 5.2 mg/dL (2.5-4.9); SODIUM SERUM 136 mmol/L (136-145); UREA NITROGEN, BLOOD 18 mg/dL (7-18)
[2020-07-22] MEDS: ACETAMINOPHEN 325 MG TABLET PO PRN ×3 (01:01→17:55)
[2020-07-22 01:36] LABS: GLUCOSE,POINT OF CARE 211 MG/DL (70-110)
[2020-07-22 02:17] LABS: POTASSIUM 2.5 mmol/L (3.5-5.1)
[2020-07-22 02:51] LABS: GLUCOSE,POINT OF CARE 202 MG/DL (70-110)
[2020-07-22] MEDS ORDERED: INSULIN REGULAR, HUMAN 100 UNITS in SODIUM CHLORIDE 0.9% 99 ML IV PRN ×6 (03:15)
[2020-07-22] MEDS ORDERED: INSULIN REGULAR, HUMAN 100 UNITS/ML IVP PRN (03:15)
[2020-07-22] MEDS: POTASSIUM CHL 10 MEQ/WATER 50 ML IV PRN ×10 (03:24→23:27)
[2020-07-22 03:44] LABS: GLUCOSE,POINT OF CARE 184 MG/DL (70-110)
[2020-07-22 04:54] LABS: GLUCOSE,POINT OF CARE 146 MG/DL (70-110)
[2020-07-22 05:27] LABS: BASOPHILS % (AUTO) 0.4 % (0.0-2.0); EOSINOPHILS % (AUTO) 0 % (1.0-6.0); HEMATOCRIT 29.8 % (36-46); HEMOGLOBIN 9.7 g/dL (12.0-16.0); LYMPHOCYTES # (AUTO) 1.4 K/uL (1.0-4.8); LYMPHOCYTES % (AUTO) 11.8 % (22.0-44.0); MEAN CORPUSCULAR HEMOGLOBIN 27.1 pg (26.0-34.0); MEAN CORPUSCULAR HGB CONC 32.6 G/dL (31.0-37.0); MEAN CORPUSCULAR VOLUME 83 fL (80-100); MONOCYTES # (AUTO) 0.8 K/uL (0.1-1.0); MONOCYTES % (AUTO) 6.7 % (2.0-9.0); NEUTROPHILS # (AUTO) 9.7 K/uL (1.8-7.7); NEUTROPHILS % (AUTO) 81.1 % (40.0-70.0); PLATELET COUNT (AUTO) 197 K/uL (150-450); RED BLOOD CELL COUNT(AUTO) 3.59 MIL/uL (4.00-5.20); RED CELL DISTRIBUTION WIDTH 15.2 % (11.5-14.5)
[2020-07-22 05:42] LABS: ALANINE AMINOTRANSFERASE 32 U/L (12-78); ALBUMIN 2.5 g/dL (3.4-5.0); ALKALINE PHOSPHATASE 62 U/L (46-116); ANION GAP 12 mmol/L (8-16); ASPARTATE AMINOTRANSFERASE 58 U/L (15-37); BILIRUBIN,TOTAL 0.3 mg/dL (0.1-1.0); CALCIUM, TOTAL 6.9 mg/dL (8.8-10.5); CARBON DIOXIDE 15 mmol/L (22-29); CHLORIDE 111 mmol/L (98-107); CREATININE 0.96 mg/dL (0.60-1.30); GLOMERULAR FILTR. RATE CALC > 60 mL/min (>60); GLUCOSE,RANDOM 124 mg/dL (70-110); SODIUM SERUM 138 mmol/L (136-145); TOTAL PROTEIN, SERUM 5.5 g/dL (6.4-8.2); UREA NITROGEN, BLOOD 16 mg/dL (7-18)
[2020-07-22 05:43] LABS: GLUCOSE,POINT OF CARE 114 MG/DL (70-110)
[2020-07-22 06:22] LABS: POTASSIUM 2.3 mmol/L (3.5-5.1)
[2020-07-22 07:04] LABS: GLUCOSE,POINT OF CARE 130 MG/DL (70-110)
[2020-07-22 09:07] LABS: GLUCOSE,POINT OF CARE 116 MG/DL (70-110)
[2020-07-22 09:07] LABS: GLUCOSE,POINT OF CARE 117 MG/DL (70-110)
[2020-07-22] MEDS ORDERED: DEXTROSE 5%-0.45% SODIUM CHL 1,000 ML IV ONE (09:30)
[2020-07-22] MEDS: MULTIVITAMINS WITH MINERALS, THERAPEUTIC TABLET PO SCH (09:38)
[2020-07-22] MEDS: THIAMINE 100 MG TABLET PO SCH (09:38)
[2020-07-22] MEDS: PANTOPRAZOLE SODIUM 40 MG/VIAL IVP SCH (09:38)
[2020-07-22] MEDS: ESCITALOPRAM OXALATE 10 MG TABLET PO SCH (09:39)
[2020-07-22] MEDS: FOLIC ACID 0.4 MG TABLET PO SCH (09:39)
[2020-07-22] MEDS: DEXTROSE 5%-0.45% SODIUM CHL 1,000 ML IV PRN (09:40)
[2020-07-22] MEDS ORDERED: POTASSIUM CHLORIDE 10% 40 MEQ/30 ML LIQUID UDCUP PO ONE (09:45)
[2020-07-22] MEDS ORDERED: MAGNESIUM SULFATE 2 GM/WATER 50 ML IV ONE (09:45)
[2020-07-22 09:58] LABS: ANION GAP 14 mmol/L (8-16); CALCIUM, TOTAL 6.7 mg/dL (8.8-10.5); CARBON DIOXIDE 15 mmol/L (22-29); CHLORIDE 113 mmol/L (98-107); CREATININE 0.95 mg/dL (0.60-1.30); GLOMERULAR FILTR. RATE CALC > 60 mL/min (>60); GLUCOSE,RANDOM 138 mg/dL (70-110); SODIUM SERUM 142 mmol/L (136-145); UREA NITROGEN, BLOOD 16 mg/dL (7-18)
[2020-07-22 09:59] LABS: POTASSIUM 2.8 mmol/L (3.5-5.1)
[2020-07-22 11:52] LABS: GLUCOSE,POINT OF CARE 110 MG/DL (70-110)
[2020-07-22 12:31] LABS: GLUCOSE,POINT OF CARE 159 MG/DL (70-110)
[2020-07-22 12:31] LABS: GLUCOSE,POINT OF CARE 133 MG/DL (70-110)
[2020-07-22 12:53] LABS: GLUCOSE,POINT OF CARE 168 MG/DL (70-110)
[2020-07-22 12:54] LABS: ANION GAP 15 mmol/L (8-16); CALCIUM, TOTAL 7.1 mg/dL (8.8-10.5); CARBON DIOXIDE 15 mmol/L (22-29); CHLORIDE 112 mmol/L (98-107); CREATININE 0.86 mg/dL (0.60-1.30); GLOMERULAR FILTR. RATE CALC > 60 mL/min (>60); GLUCOSE,RANDOM 190 mg/dL (70-110); SODIUM SERUM 142 mmol/L (136-145); UREA NITROGEN, BLOOD 15 mg/dL (7-18)
[2020-07-22 13:05] LABS: POTASSIUM 2.7 mmol/L (3.5-5.1)
[2020-07-22 14:47] LABS: PHOSPHORUS 2.6 mg/dL (2.5-4.9)
[2020-07-22 15:06] LABS: ABG A-A DIFF O2 15.6 mmHg (10-20.0); ABG BASE EXCESS -9.9 mmol/L (-2.0-3.0); ABG CARBOXYHEMOGLOBIN 0.5 % (0.0-3.0); ABG HCO3 17.5 mmol/L (22.0-26.0); ABG METHEMOGLOBIN 0.3 % (0.0-1.5); ABG OXYGEN CONTENT 13.1 mL/dL (15.0-23.0); ABG OXYGEN SATURATION 97.8 % (95.0-98.0); ABG PCO2 26 mmHg (35-45); ABG PH 7.388 (7.350-7.450); ABG TOTAL HEMOGLOBIN 9.5 G/dL (12.0-18.0); PO2, ARTERIAL BG 103.3 mmHg (80.0-100.0); SOURCE, BLOOD GAS ARTERIAL; TEMPERATURE, FAHRENHEIT, BG 98.9 FAHREN (96.0-98.6)
[2020-07-22 15:07] LABS: O2 DEVICE,BLOOD GAS ROOM AIR (ROOM AIR); SITE, BLOOD GAS LFT RADIAL
[2020-07-22 15:44] LABS: GLUCOSE,POINT OF CARE 204 MG/DL (70-110)
[2020-07-22 15:44] LABS: GLUCOSE,POINT OF CARE 175 MG/DL (70-110)
[2020-07-22 16:40] LABS: GLUCOSE,POINT OF CARE 219 MG/DL (70-110)
[2020-07-22 17:23] LABS: GLUCOSE,POINT OF CARE 191 MG/DL (70-110)
[2020-07-22 18:16] LABS: ANION GAP 10 mmol/L (8-16); CALCIUM, TOTAL 7.3 mg/dL (8.8-10.5); CARBON DIOXIDE 17 mmol/L (22-29); CHLORIDE 114 mmol/L (98-107); CREATININE 0.75 mg/dL (0.60-1.30); GLOMERULAR FILTR. RATE CALC > 60 mL/min (>60); GLUCOSE,RANDOM 192 mg/dL (70-110); POTASSIUM 3.4 mmol/L (3.5-5.1); SODIUM SERUM 141 mmol/L (136-145); UREA NITROGEN, BLOOD 14 mg/dL (7-18)
[2020-07-22 18:21] LABS: ALANINE AMINOTRANSFERASE 48 U/L (12-78); ALBUMIN 2.5 g/dL (3.4-5.0); ALKALINE PHOSPHATASE 67 U/L (46-116); ASPARTATE AMINOTRANSFERASE 76 U/L (15-37); BILIRUBIN,TOTAL 0.3 mg/dL (0.1-1.0); TOTAL PROTEIN, SERUM 5.2 g/dL (6.4-8.2)
[2020-07-22 19:08] LABS: GLUCOSE,POINT OF CARE 134 MG/DL (70-110)
[2020-07-22 20:03] LABS: GLUCOSE,POINT OF CARE 171 MG/DL (70-110)
[2020-07-22 21:05] LABS: GLUCOSE,POINT OF CARE 123 MG/DL (70-110)
[2020-07-22 21:54] LABS: ANION GAP 10 mmol/L (8-16); CALCIUM, TOTAL 7.6 mg/dL (8.8-10.5); CARBON DIOXIDE 20 mmol/L (22-29); CHLORIDE 113 mmol/L (98-107); CREATININE 0.78 mg/dL (0.60-1.30); GLOMERULAR FILTR. RATE CALC > 60 mL/min (>60); GLUCOSE,RANDOM 113 mg/dL (70-110); SODIUM SERUM 143 mmol/L (136-145); UREA NITROGEN, BLOOD 13 mg/dL (7-18)
[2020-07-22 21:55] LABS: GLUCOSE,POINT OF CARE 99 MG/DL (70-110)
[2020-07-22 22:08] LABS: POTASSIUM 2.7 mmol/L (3.5-5.1)
[2020-07-22 22:56] LABS: GLUCOSE,POINT OF CARE 104 MG/DL (70-110)
[2020-07-22 22:56] LABS: GLUCOSE,POINT OF CARE 86 MG/DL (70-110)
[2020-07-22 23:27] LABS: GLUCOSE,POINT OF CARE 96 MG/DL (70-110)
[2020-07-23] VITALS (12 sets, daily range): BP systolic 101–127; BP diastolic 66–77
[2020-07-23 00:14] LABS: GLUCOSE,POINT OF CARE 122 MG/DL (70-110)
[2020-07-23] MEDS: DEXTROSE 5%-WATER 1,000 ML IV SCH (00:28)
[2020-07-23] MEDS: POTASSIUM CHL 10 MEQ/WATER 50 ML IV PRN ×2 (00:34→01:25)
[2020-07-23 01:09] LABS: GLUCOSE,POINT OF CARE 114 MG/DL (70-110)
[2020-07-23 02:53] LABS: GLUCOSE,POINT OF CARE 171 MG/DL (70-110)
[2020-07-23 03:53] LABS: GLUCOSE,POINT OF CARE 171 MG/DL (70-110)
[2020-07-23 03:54] LABS: BASOPHILS % (AUTO) 0.3 % (0.0-2.0); EOSINOPHILS % (AUTO) 0.1 % (1.0-6.0); HEMATOCRIT 26.1 % (36-46); HEMOGLOBIN 8.8 g/dL (12.0-16.0); LYMPHOCYTES # (AUTO) 1.8 K/uL (1.0-4.8); LYMPHOCYTES % (AUTO) 28.4 % (22.0-44.0); MEAN CORPUSCULAR HEMOGLOBIN 27.7 pg (26.0-34.0); MEAN CORPUSCULAR HGB CONC 33.5 G/dL (31.0-37.0); MEAN CORPUSCULAR VOLUME 83 fL (80-100); MONOCYTES # (AUTO) 0.5 K/uL (0.1-1.0); MONOCYTES % (AUTO) 7.3 % (2.0-9.0); NEUTROPHILS % (AUTO) 63.9 % (40.0-70.0); PLATELET COUNT (AUTO) 170 K/uL (150-450); RED BLOOD CELL COUNT(AUTO) 3.17 MIL/uL (4.00-5.20); RED CELL DISTRIBUTION WIDTH 15.8 % (11.5-14.5)
[2020-07-23 04:06] LABS: ALANINE AMINOTRANSFERASE 43 U/L (12-78); ALBUMIN 2.3 g/dL (3.4-5.0); ALKALINE PHOSPHATASE 56 U/L (46-116); ANION GAP 10 mmol/L (8-16); ASPARTATE AMINOTRANSFERASE 53 U/L (15-37); BILIRUBIN,TOTAL 0.4 mg/dL (0.1-1.0); CARBON DIOXIDE 20 mmol/L (22-29); CHLORIDE 113 mmol/L (98-107); CREATININE 0.83 mg/dL (0.60-1.30); GLOMERULAR FILTR. RATE CALC > 60 mL/min (>60); GLUCOSE,RANDOM 189 mg/dL (70-110); POTASSIUM 3.2 mmol/L (3.5-5.1); SODIUM SERUM 143 mmol/L (136-145); TOTAL PROTEIN, SERUM 4.9 g/dL (6.4-8.2); UREA NITROGEN, BLOOD 12 mg/dL (7-18)
[2020-07-23 05:03] LABS: GLUCOSE,POINT OF CARE 182 MG/DL (70-110)
[2020-07-23] MEDS ORDERED: DEXTROSE 50%-WATER 25 GM/50 ML SYRINGE IVP PRN (05:15)
[2020-07-23] MEDS ORDERED: POTASSIUM CHLORIDE 40 MEQ in SODIUM CHLORIDE 0.45% 500 ML IV ONE (05:45)
[2020-07-23] MEDS: INSULIN GLARGINE,HUM.REC.ANLOG 100 UNITS/ML SQ SCH (05:55)
[2020-07-23] MEDS: THIAMINE 100 MG TABLET PO SCH (08:24)
[2020-07-23] MEDS: MULTIVITAMINS WITH MINERALS, THERAPEUTIC TABLET PO SCH (08:24)
[2020-07-23] MEDS: ACETAMINOPHEN 325 MG TABLET PO PRN (08:24)
[2020-07-23] MEDS: HEPARIN SODIUM,PORCINE 5,000 UNITS/ML VIAL SQ SCH ×3 (08:25→23:55)
[2020-07-23] MEDS: PANTOPRAZOLE SODIUM 40 MG/VIAL IVP SCH (08:25)
[2020-07-23] MEDS: ESCITALOPRAM OXALATE 10 MG TABLET PO SCH (10:13)
[2020-07-23] MEDS: FOLIC ACID 0.4 MG TABLET PO SCH (10:14)
[2020-07-23 10:46] LABS: ANION GAP 9 mmol/L (8-16); CALCIUM, TOTAL 7.2 mg/dL (8.8-10.5); CARBON DIOXIDE 17 mmol/L (22-29); CHLORIDE 111 mmol/L (98-107); CREATININE 0.89 mg/dL (0.60-1.30); GLOMERULAR FILTR. RATE CALC > 60 mL/min (>60); GLUCOSE,RANDOM 331 mg/dL (70-110); POTASSIUM 4.2 mmol/L (3.5-5.1); SODIUM SERUM 137 mmol/L (136-145); UREA NITROGEN, BLOOD 13 mg/dL (7-18)
[2020-07-23 12:14] LABS: GLUCOSE,POINT OF CARE 288 MG/DL (70-110)
[2020-07-23] MEDS: INSULIN LISPRO 100 UNITS/ML SQ PRN ×3 (13:10→21:15)
[2020-07-23 17:55] LABS: ANION GAP 15 mmol/L (8-16); CALCIUM, TOTAL 8.5 mg/dL (8.8-10.5); CARBON DIOXIDE 17 mmol/L (22-29); CHLORIDE 106 mmol/L (98-107); CREATININE 0.92 mg/dL (0.60-1.30); GLOMERULAR FILTR. RATE CALC > 60 mL/min (>60); GLUCOSE,RANDOM 342 mg/dL (70-110); POTASSIUM 4.1 mmol/L (3.5-5.1); SODIUM SERUM 138 mmol/L (136-145); UREA NITROGEN, BLOOD 16 mg/dL (7-18)
[2020-07-23 18:12] LABS: GLUCOMETER DEV NAME(LOC) 4E.2; GLUCOSE,POINT OF CARE 306 MG/DL (70-110)
[2020-07-23 19:03] LABS: ANION GAP 9 mmol/L (8-16); CALCIUM, TOTAL 8.1 mg/dL (8.8-10.5); CARBON DIOXIDE 19 mmol/L (22-29); CHLORIDE 107 mmol/L (98-107); CREATININE 1.06 mg/dL (0.60-1.30); GLOMERULAR FILTR. RATE CALC > 60 mL/min (>60); GLUCOSE,RANDOM 318 mg/dL (70-110); POTASSIUM 3.9 mmol/L (3.5-5.1); SODIUM SERUM 135 mmol/L (136-145); UREA NITROGEN, BLOOD 15 mg/dL (7-18)
[2020-07-23 23:28] LABS: ANION GAP 7 mmol/L (8-16); CALCIUM, TOTAL 8.1 mg/dL (8.8-10.5); CARBON DIOXIDE 22 mmol/L (22-29); CHLORIDE 109 mmol/L (98-107); CREATININE 0.93 mg/dL (0.60-1.30); GLOMERULAR FILTR. RATE CALC > 60 mL/min (>60); GLUCOSE,RANDOM 215 mg/dL (70-110); POTASSIUM 3.6 mmol/L (3.5-5.1); SODIUM SERUM 138 mmol/L (136-145); UREA NITROGEN, BLOOD 14 mg/dL (7-18)
[2020-07-24] MEDS: ACETAMINOPHEN 325 MG TABLET PO PRN (02:50)
[2020-07-24] MEDS: INSULIN LISPRO 100 UNITS/ML SQ PRN ×2 (06:08→11:49)
[2020-07-24] MEDS: INSULIN GLARGINE,HUM.REC.ANLOG 100 UNITS/ML SQ SCH (06:09)
[2020-07-24 06:10] VITALS: BP 102/75
[2020-07-24 08:04] VITALS: BP 121/85
[2020-07-24] MEDS: PANTOPRAZOLE SODIUM 40 MG/VIAL IVP SCH (08:24)
[2020-07-24] MEDS: MULTIVITAMINS WITH MINERALS, THERAPEUTIC TABLET PO SCH (08:24)
[2020-07-24] MEDS: THIAMINE 100 MG TABLET PO SCH (08:24)
[2020-07-24] MEDS: HEPARIN SODIUM,PORCINE 5,000 UNITS/ML VIAL SQ SCH (08:24)
[2020-07-24] MEDS: FOLIC ACID 0.4 MG TABLET PO SCH (08:24)
[2020-07-24] MEDS: ESCITALOPRAM OXALATE 10 MG TABLET PO SCH (08:24)
[2020-07-24 08:51] LABS: GLUCOMETER DEV NAME(LOC) 4E.2; GLUCOSE,POINT OF CARE 301 MG/DL (70-110)
[2020-07-24 08:51] LABS: GLUCOMETER DEV NAME(LOC) 4E.2; GLUCOSE,POINT OF CARE 287 MG/DL (70-110)
[2020-07-24 11:46] VITALS: BP 107/71
[2020-07-24 12:10] LABS: BASOPHILS % (AUTO) 0.3 % (0.0-2.0); EOSINOPHILS % (AUTO) 0.7 % (1.0-6.0); HEMATOCRIT 26.2 % (36-46); HEMOGLOBIN 8.6 g/dL (12.0-16.0); LYMPHOCYTES # (AUTO) 1.5 K/uL (1.0-4.8); LYMPHOCYTES % (AUTO) 28.3 % (22.0-44.0); MEAN CORPUSCULAR HEMOGLOBIN 27.5 pg (26.0-34.0); MEAN CORPUSCULAR HGB CONC 32.7 G/dL (31.0-37.0); MEAN CORPUSCULAR VOLUME 84 fL (80-100); MONOCYTES # (AUTO) 0.4 K/uL (0.1-1.0); MONOCYTES % (AUTO) 7.9 % (2.0-9.0); NEUTROPHILS # (AUTO) 3.3 K/uL (1.8-7.7); NEUTROPHILS % (AUTO) 62.8 % (40.0-70.0); PLATELET COUNT (AUTO) 174 K/uL (150-450); RED BLOOD CELL COUNT(AUTO) 3.13 MIL/uL (4.00-5.20)
[2020-07-24 12:46] LABS: ALANINE AMINOTRANSFERASE 35 U/L (12-78); ALBUMIN 2.5 g/dL (3.4-5.0); ALKALINE PHOSPHATASE 64 U/L (46-116); ANION GAP 12 mmol/L (8-16); ASPARTATE AMINOTRANSFERASE 20 U/L (15-37); BILIRUBIN,TOTAL 0.2 mg/dL (0.1-1.0); CALCIUM, TOTAL 8.1 mg/dL (8.8-10.5); CARBON DIOXIDE 21 mmol/L (22-29); CHLORIDE 106 mmol/L (98-107); CREATININE 0.86 mg/dL (0.60-1.30); GLOMERULAR FILTR. RATE CALC > 60 mL/min (>60); GLUCOSE,RANDOM 343 mg/dL (70-110); POTASSIUM 3.6 mmol/L (3.5-5.1); SODIUM SERUM 139 mmol/L (136-145); TOTAL PROTEIN, SERUM 5.2 g/dL (6.4-8.2); UREA NITROGEN, BLOOD 13 mg/dL (7-18)
[2020-07-24] MEDS ORDERED: AMOX1TAB16 PO (13:17)
[2020-07-24] MEDS ORDERED: DOXY-354 PO (13:18)
[2020-07-24 13:43] LABS: GLUCOMETER DEV NAME(LOC) 4E.2; GLUCOSE,POINT OF CARE 301 MG/DL (70-110)
== END 2020-07-24 14:00 | disposition home or self-care (01) | DRG 871 ==
LOC: EMS 06:24 → AHU 07-21 13:12 → 4E 07-23 14:35
PROVIDERS: ADMIT Internal Medicine; ATTEND Internal Medicine
DX: A41.9 Sepsis, unspecified organism (principal); E10.10 Type 1 diabetes mellitus with ketoacidosis without coma; E87.1 Hypo-osmolality and hyponatremia; E87.6 Hypokalemia; F32.9 Major depressive disorder, single episode, unspecified; F41.9 Anxiety disorder, unspecified; F17.210 Nicotine dependence, cigarettes, uncomplicated; F10.10 Alcohol abuse, uncomplicated; Z91.19 Patient's noncompliance with other medical treatment and regimen; I10 Essential (primary) hypertension; E88.09 Other disorders of plasma-protein metabolism, not elsewhere classified; Z20.828 Contact with and (suspected) exposure to other viral communicable diseases; S51.812A Laceration without foreign body of left forearm, initial encounter; X78.8XXA Intentional self-harm by other sharp object, initial encounter; Y93.89 Activity, other specified; Y92.89 Other specified places as the place of occurrence of the external cause; Y99.8 Other external cause status
CPT/HCPCS: 36600; 82805; 83036; 83605; 83735; 84100; 84145; 84439; 84443; 87040; 87426; 87804; 93005; 93306; 99291; C9113; G0378; G0480; G0481; J1644; J1815; J2060; J2543; J3370; J3475; J3480; J3490; J7050; J7060; J7120; 36415-L1; 36415-TC; 71045-TC; 80061-TC; U0003; X7700